=== PATIENT | male | born 1975 | race Two or more races ===

== ENCOUNTER 2023-02-15 15:48 | Emergency (ER) | payer OTHER ==
[~2023-02-15] VITALS: Ht 170.2 cm; Wt 84.4 kg
[2023-02-15] MEDS ORDERED: GLUMETZA500 MG (16:24)
[2023-02-15] MEDS ORDERED: MEDROLPACK PO (21:46)
== END 2023-02-15 22:09 | disposition home or self-care (01) ==
LOC: ER 15:48
DX: G51.0 Bell's palsy (principal); R53.81 Other malaise; I10 Essential (primary) hypertension; E11.9 Type 2 diabetes mellitus without complications; Z79.84 Long term (current) use of oral hypoglycemic drugs; Z88.0 Allergy status to penicillin